=== PATIENT | female | born 1985 | race Caucasian/White ===

== ENCOUNTER 2018-02-08 07:31 | Inpatient (IN) | payer BC ==
[2018-02-08] VITALS (16 sets, daily range): BP systolic 110–159; BP diastolic 68–92; PULSE 58–111; TEMP 97.4–98.5
[~2018-02-08] VITALS: Ht 170.2 cm; Wt 87.7 kg
[~2018-02-08 07:31] MED LIST: EXPECTA PO; FLONASE NASAL S16 GM NS; FLONASEALLERGY NS; MIRENA52 MG IY; MOTRIN 600600 MG/TAB PO; PERCOCET 325 MG1 TA2 PO; PRENATAL MVI; PRENATAL1 TA1 PO; PROAIR HFA0.09 MG/AC IH
[2018-02-08 09:02] LABS: BASO % 0.3 % (0.0-2.0); EOS % 0.5 % (0-4.0); GRAN # 5.6 (1.4-6.5); GRAN % 73.1 % (42.2-75.2); HEMOGLOBIN 12.7 g/dl (12.5-16.0); LYMPH # 1.3 (1.2-3.4); LYMPH % 17.4 % (20.0-51.0); MEAN CELL VOLUME 90 fl (80.0-100.0); MEAN CORPUSCULAR HEMOGLOBIN 31 pg (27.0-31.0); MEAN CORPUSCULAR HGB CONC 34 g/dl (33.0-37.0); MEAN PLATELET VOLUME 11.5 fl (7.4-10.4); MONO # 0.6 (0.1-0.6); MONO % 7.9 % (1.7-9.3); PLATELET COUNT 175 K/mm3 (130-400); REDCELL DISTRIBUTION WIDTH-CV 12.6 % (11.5-14.5)
[2018-02-08 09:05] LABS: HEMATOCRIT 36.9 % (37.0-47.0)
[2018-02-09 05:30] VITALS: BP 125/69; PULSE 73; TEMP 97.6
[2018-02-09 08:30] VITALS: BP 124/73; PULSE 78; TEMP 98.5
[2018-02-09 13:15] VITALS: BP 128/61; PULSE 74; TEMP 97.9
[2018-02-09 16:30] VITALS: BP 128/86; PULSE 67; TEMP 97.8
[2018-02-09 22:00] VITALS: BP 115/64; PULSE 76; TEMP 98.5
[2018-02-10] MEDS ORDERED: PERCOCET 325 MG1 TA2 PO (08:04)
[2018-02-10] MEDS ORDERED: IBU600 MG PO (08:04)
[2018-02-10 08:15] VITALS: BP 120/80; PULSE 77; TEMP 97.8
== END 2018-02-10 13:10 | disposition home or self-care (01) | DRG 775 ==
LOC: LDRO 07:31 → LDR 08:30 → OB 14:55
PROVIDERS: Obstetrics & Gynecology
PROC: 10E0XZZ Delivery of Products of Conception, External Approach (ICD-10-PCS; principal; 2018-02-08)
PROC: 0KQM0ZZ Repair Perineum Muscle, Open Approach (ICD-10-PCS; 2018-02-08)
DX: O70.1 Second degree perineal laceration during delivery (principal); Z37.0 Single live birth; Z3A.39 39 weeks gestation of pregnancy; O26.893 Other specified pregnancy related conditions, third trimester; J45.909 Unspecified asthma, uncomplicated
CPT/HCPCS: J2540; J2590; J7120

== ENCOUNTER → 2019-05-06 | Outpatient (CLI) | payer BC ==
[~2019-05-06] MED LIST changes: +IBU600 MG PO
== END ==
LOC: COL.RAD 13:30
DX: J45.909 Unspecified asthma, uncomplicated (principal); J32.0 Chronic maxillary sinusitis; J32.1 Chronic frontal sinusitis; J32.2 Chronic ethmoidal sinusitis